=== PATIENT | male | born 1980 | race African-American/Black ===

== ENCOUNTER 2016-08-16 13:49 | Emergency (ER) | payer MEDICAID ==
[~2016-08-16] VITALS: Ht 193 cm; Wt 100.0 kg
[2016-08-16 14:59] LABS: APPEARANCE,URINE CLEAR (CLEAR); GLUCOSE, URINE (UA) NEGATIVE (NEGATIVE); KETONES,URINE NEGATIVE (NEGATIVE); LEUKOCYTE ESTERASE ,URINE NEGATIVE (NEGATIVE); OCCULT BLOOD,URINE NEGATIVE (NEGATIVE); PROTEIN,URINE NEGATIVE (NEGATIVE)
[2016-08-16 15:07] LABS: ADD UA MICROSCOPIC NO
[2016-08-16 18:12] VITALS: BP 120/65
== END 2016-08-16 18:21 | disposition home or self-care (01) ==
LOC: EDSEX 13:52 → EMS 13:52
DX: N39.9 Disorder of urinary system, unspecified (principal); N39.8 Other specified disorders of urinary system; R31.9 Hematuria, unspecified
CPT/HCPCS: 99283

== ENCOUNTER 2022-10-03 01:11 | Emergency (ER) | payer MEDICAID, OTHER ==
[~2022-10-03] VITALS: Ht 195.6 cm; Wt 100.0 kg
[2022-10-03 01:19] VITALS: TEMP 98.1
[2022-10-03] MEDS ORDERED: ACETAMINOPHEN 500 MG TABLET PO ONE (03:15)
[2022-10-03] MEDS ORDERED: METOCLOPRAMIDE HCL 5 MG/ML 2 ML VIAL IVP ONE (03:15)
[2022-10-03] MEDS ORDERED: DiphenhydrAMINE HCL 50 MG/ML VIAL IVP ONE (03:15)
[2022-10-03] MEDS ORDERED: ONDANSETRON HCL 4 MG/2 ML VIAL IVP ONE (03:15)
[2022-10-03] MEDS ORDERED: SODIUM CHLORIDE 0.9% 1,000 ML IV ONE (03:15)
[2022-10-03 04:21] LABS: ANION GAP 9 mmol/L (8-16); CALCIUM, TOTAL 8.7 mg/dL (8.8-10.5); CARBON DIOXIDE 26 mmol/L (22-29); CHLORIDE 105 mmol/L (98-107); CREATININE 1.24 mg/dL (0.60-1.30); GLOMERULAR FILTR. RATE CALC > 60 mL/min (>60); GLUCOSE,RANDOM 119 mg/dL (70-110); POTASSIUM 3.8 mmol/L (3.5-5.1); SODIUM SERUM 140 mmol/L (136-145)
[2022-10-03 04:23] LABS: ALANINE AMINOTRANSFERASE 21 U/L (12-78); ALBUMIN 3.5 g/dL (3.4-5.0); ALKALINE PHOSPHATASE 72 U/L (46-116); ASPARTATE AMINOTRANSFERASE 15 U/L (15-37); BASOPHILS % (AUTO) 1.3 % (0.0-2.0); BILIRUBIN,TOTAL 1.3 mg/dL (0.1-1.0); EOSINOPHILS % (AUTO) 2.4 % (1.0-6.0); HEMATOCRIT 47.5 % (41-53); HEMOGLOBIN 16.1 g/dL (13.5-17.5); LYMPHOCYTES # (AUTO) 2.1 K/uL (1.0-4.8); MEAN CORPUSCULAR HEMOGLOBIN 30.8 pg (26.0-34.0); MEAN CORPUSCULAR HGB CONC 33.8 G/dL (31.0-37.0); MEAN CORPUSCULAR VOLUME 91 fL (80-100); MONOCYTES # (AUTO) 0.4 K/uL (0.1-1.0); MONOCYTES % (AUTO) 8.8 % (2.0-9.0); NEUTROPHILS # (AUTO) 1.9 K/uL (1.8-7.7); NEUTROPHILS % (AUTO) 41.5 % (40.0-70.0); PLATELET COUNT (AUTO) 187 K/uL (150-450); RED BLOOD CELL COUNT(AUTO) 5.22 MIL/uL (4.50-5.90); RED CELL DISTRIBUTION WIDTH 14.5 % (11.5-14.5); TOTAL PROTEIN, SERUM 7.1 g/dL (6.4-8.2)
[2022-10-03 04:41] VITALS: BP 129/79; PULSE 70; RESP 16
== END 2022-10-03 05:03 | disposition home or self-care (01) ==
LOC: EMS 01:13
DX: F07.81 Postconcussional syndrome (principal); F12.90 Cannabis use, unspecified, uncomplicated; Z98.890 Other specified postprocedural states
CPT/HCPCS: 99285; 96374; 70450; 96361; 96375; 80053; 85025; 36415; J1200; J2765; J2405; J7030